=== PATIENT | male | born 1990 | race Caucasian/White ===

== ENCOUNTER 2016-11-15 13:50 | Emergency (ER) | payer OTHER ==
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
[2016-11-15] MEDS ORDERED: IBUPROFEN 800 MG TABLET PO ONE (18:09)
[2016-11-15] MEDS ORDERED: OXYCODONE-ACETAMINOPHEN 5-325 MG TABLET PO ONE (18:09)
[2016-11-15 21:51] VITALS: BP 141/70
== END 2016-11-15 21:11 | disposition home or self-care (01) ==
LOC: ER 13:50
DX: S63.91XA Sprain of unspecified part of right wrist and hand, initial encounter (principal); S16.1XXA Strain of muscle, fascia and tendon at neck level, initial encounter; S80.01XA Contusion of right knee, initial encounter; S00.81XA Abrasion of other part of head, initial encounter; V43.52XA Car driver injured in collision with other type car in traffic accident, initial encounter; W22.11XA Striking against or struck by driver side automobile airbag, initial encounter; R51 Headache; M54.2 Cervicalgia; M25.561 Pain in right knee; M79.644 Pain in right finger(s); R06.00 Dyspnea, unspecified
CPT/HCPCS: 99284; 71020; 73130; 73562; 70450; 72125; L1830

== ENCOUNTER → 2018-01-28 | Outpatient (CLI) | payer OTHER ==
--- NOTE | 2018-01-28 09:36 | RADIOLOGY REPORT (SQ) ---
EXAM DESCRIPTION: SHOULDER LEFT 2 OR MORE VIEWS COMPLETED DATE/TIME: 01/28/2018 9:23 am REASON FOR STUDY: PAIN IN LEFT SHOULDER COMPARISON: None. NUMBER OF VIEWS: Three views left shoulder. LIMITATIONS: None. FINDINGS: Normal bone density with intact AC and glenohumeral joints. Prominent acromial spurring v ersus accessory ossification center, probable narrowing of the subacromial space. No fracture or bon e lesion or visualized lung lesion. OTHER: No other significant finding. IMPRESSION: As above. TECHNICAL DOCUMENTATION: JOB ID: [id number] Reading location - IP/workstation name: [email or web address]
== END ==
LOC: RAD 09:08
PROVIDERS: ATTEND Physician Assistant
DX: M25.512 Pain in left shoulder (principal)